=== PATIENT | female | born 1985 | race Caucasian/White ===

== ENCOUNTER 2023-02-14 16:18 | Outpatient (RCR) | payer BC, SELFPAY ==
[2023-01-15 17:14] VITALS: BP 112/79; PULSE 83
[2023-01-24 16:32] VITALS: BP 119/76; PULSE 82
[2023-01-31 16:10] VITALS: BP 132/82; PULSE 85
[2023-02-07 16:27] VITALS: BP 124/76; PULSE 87
--- NOTE | ~2023-02-14 | US_ITS ---
EXAMINATION: US OB BPP wo non-stress DATE: 02/14/2023 19:06 INDICATION: GDM. Variable decelerations. TECHNIQUE: Real-time ultrasound of the pelvis was performed. COMPARISON: None. FINDINGS: There is a single living fetus in vertex presentation, longitudinal lie. The placenta is posterior a nd remote from the internal os. heart rate is 144 bpm. The amniotic fluid index is 13.4 cm, whi ch is normal (5th to 95th percentile is 7.5 to 24.4 cm). Biophysical profile performed by the technologist: breathing (30 sec sustained breathing in 30 minutes): 2 out of 2. movement (3 gross body movements in 30 minutes: 2 out of 2. tone (one episode of qrctvgm-wqksoymkh-rtsnmfl limb movement): 2 out of 2. Amniotic fluid pocket (2 cm): 2 out of 2. Total score: 8 out of 8. IMPRESSION: Single living fetus in vertex presentation. Biophysical profile 8 out of 8. Normal JUAN. Reviewed, dictated and finalized at location K.
[2023-02-14 19:58] VITALS: BP 133/85; PULSE 96
== END 2023-04-15 23:59 | disposition home or self-care (01) ==
LOC: ANHOBOP 16:18
PROVIDERS: Visit Provider Obstetrics & Gynecology
DX: O24.419 Gestational diabetes mellitus in pregnancy, unspecified control (principal); Z3A.33 33 weeks gestation of pregnancy; Z3A.34 34 weeks gestation of pregnancy; Z3A.35 35 weeks gestation of pregnancy; Z3A.36 36 weeks gestation of pregnancy; Z3A.37 37 weeks gestation of pregnancy
CPT/HCPCS: 59025; 76819

== ENCOUNTER 2023-02-19 06:59 | Inpatient (IN) | payer BC, SELFPAY ==
[2023-02-19] VITALS (17 sets, daily range): BP systolic 126–153; BP diastolic 58–103; PULSE 72–92; RESP 18–22; TEMP 36.6–37.2; O2SAT 97–98; BMI 39.7
--- NOTE | 2023-02-19 07:25 | LDADM ---
This patient, Mandy Segundo, was admitted to Labor/Delivery/Recovery 106 on 02/19/23 at 06:59. Plans for labor, pain management and were discussed with patient. Patient/family oriented to hospital policies and general routines including ID bracelet, bed and alarms, visiting hours, pain management, procedures, bathroom and other care routines, personal items, smoking policy, room service/diet and guest tray routines, security routines, and visiting hours. Patient/Family are encouraged to report perceived risks to care and to ask questions if they do not understand what they are told or what they should do. See OBIX for further documentation.
[2023-02-19] MEDS: LACTATED RINGERS 1,000 ML 125 ML IV CONT (07:28)
[2023-02-19 07:39] LABS: Basophils Absolute Auto 0.1 K/mm3 (0.0-0.1); Basophils Percent Auto 0.4 % (0.2-1.2); Eosinophils Absolute Auto 0.1 K/mm3 (0-0.3); Eosinophils Percent Auto 0.5 % (0-4.4); Hematocrit 43.1 % (37.0-47.0); Hemoglobin 14.8 g/dL (12.0-15.0); Immature Granulocyte Absolute 0.05 K/mm3 (0.00-0.031); Immature Granulocyte Percent A 0.4 % (0-0.5); Lymphocytes Absolute Auto 3.54 K/mm3 (0.9-3.2); Lymphocytes Percent Auto 26.8 % (18.3-44.2); Mean Corpuscular HGB Conc 34.3 g/dl (32-36); Mean Corpuscular Hemoglobin 32.2 pg (26-34); Mean Corpuscular Volume 93.7 fl (80-100); Mean Platelet Volume 11.9 fl (7.4-10.4); Monocytes Absolute Auto 0.6 K/mm3 (0.1-0.6); Monocytes Percent Auto 4.6 % (2.6-8.5); Neutrophils Absolute Auto 8.9 K/mm3 (1.3-6.7); Neutrophils Percent Auto 67.3 % (45.5-73.1); Platelet Count Result 235 k/mm3 (150-375); Red Cell Distribution Width 13.2 % (11.5-14.5); White Blood Count 13.2 K/mm3 (4.5-10.0)
[2023-02-19 07:40] LABS: Glucose Point of Care 126 mg/dl (65-105)
[2023-02-19] MEDS: OXYTOCIN 30 UNITS/NS 500 ML 30 UNITS/500 ML BAG 999 UNITS IV CONT (07:48)
--- NOTE | 2023-02-19 07:52 | P.HP_ITS ---
H&P: HPI History of Present Illness Date/Time: 02/19/23 07:52 Chief Complaint: labor Narrative: since 37-year-old 2 para 1 at term who is admitted in active fast labor. has been complicated by gestational diabetes on glyburide. Snap blood sugar was 120 this morning and she has been controlled delivery is imminent. [facility] Family History Family History Other Patient denies significant medical history Social History Social History Substance use: never Spiritual care concerns: No Meds Home Medications and Allergies Home Medications Medication Instructions Recorded Confirmed Type cholecalciferol (vitamin D3) 25 25 mcg PO DAILY 01/31/23 01/31/23 History mcg (1,000 unit) tablet esomeprazole magnesium 40 mg 40 mg PO DAILY PRN Acid Reflux 01/31/23 01/31/23 History capsule,delayed release (Nexium) glyburide 2.5 mg tablet 2.5 mg PO DAILY 01/31/23 01/31/23 History glyburide 5 mg tablet 5 mg PO DAILY 01/31/23 01/31/23 History prenat.vits,xavier,lha-ldhm-uzhgf 1 tablet 01/31/23 History Allergies Allergy/AdvReac Type Severity Reaction Status Date / Time No Known Allergies Allergy Verified 01/31/23 15:33 Exam Const: General: cooperative, healthy appearing and overweight Orientation/consciousness: oriented to person, oriented to place and oriented to time HENMT: Head: normal to inspection Resp: Effort & Inspection: normal respiratory effort Cardio: Rate: regular rate Rhythm: regular rhythm Heart sounds: S1 normal heart sound present and S2 normal heart sound present GI: Inspection: normal to inspection ( Gravid soft instruments) : Speculum Exam - Vagina: normal appearance of the vagina Speculum Exam - Cervix: normal appearance of the cervix ( cervix with anterior lip. FHTs reassuring) H&P: Results Labs Labs: Short CBC 02/19/23 Range/Units 07:33 WBC 13.2 H (4.5-10.0) K/mm3 Hgb 14.8 (12.0-15.0) g/dL Hct 43.1 (37.0-47.0) % Plt Count 235 (150-375) k/mm3 Assessment and Plan Assessment and plan (1) Term : Code(s): Z34.90 - Encounter for supervision of normal , unspecified, unspecified trimester Status: Acute (2) Gestational diabetes: Code(s): O24.419 - Gestational diabetes mellitus in , unspecified control Status: Acute Plan spontaneous vaginal delivery is imminent
--- NOTE | 2023-02-19 07:55 | P.PCNOB_ITS ---
OB - Delivery Note Procedure Delivery date: 02/19/23 Events: Gestational Diabetes Induction method: None Delivery monitor: External FHT Route of delivery: Episiotomy description: None Laceration Description: None Quantitative Blood Loss (ml): 60 Anesthesia type: None [place] Baby Date of : 02/19/23 Time of : 07:44 Weeks of gestation at delivery: 38 Infant gender: Male presentation: vertex position: Right Occiput Anterior Placenta delivery description: Spontaneous Cord Vessel Description: 3 Vessels, Nuchal Cord and Loose score one minute: 6 score five minutes: 8
[2023-02-19] MEDS: OXYTOCIN 30 UNITS/NS 500 ML 30 UNITS/500 ML BAG 125 UNITS IV CONT (08:20)
[2023-02-19] MEDS: IBUPROFEN 600 MG TABLET PO ×2 (09:01→17:39)
[2023-02-19] MEDS: BENZOCAINE 20% AER SPR (*SP) 56 GM CAN 1 SPRAY TOPICAL (09:02)
[2023-02-19] MEDS: WITCH HAZEL 40 PADS 1 PAD TOPICAL (09:02)
[2023-02-19 10:34] LABS: Alanine Aminotransferase 23 U/L (6-35); Albumin Level 3.4 g/dL (3.5-5.1); Alkaline Phosphatase 154 U/L (38-126); Anion Gap 8 mmol/L (8-16); Aspartate Amino Transferase 27 U/L (14-36); Bilirubin,Total 0.3 mg/dL (0.2-1.3); Blood Urea Nitrogen 10 mg/dL (7-17); Calcium 8.7 mg/dL (8.4-10.2); Carbon Dioxide 17 mmol/L (22-30); Chloride 109 mmol/L (98-107); Estimated CRCL calculation 183 ml/min; Estimated Glomerular Filt Rate > 60; Glucose 167 mg/dL (65-110); Potassium 4.2 mmol/L (3.4-5.0); Sodium 134 mmol/L (137-145); Uric Acid 5.2 mg/dL (2.5-7.5)
[2023-02-19] MEDS: MULTIVIT/MIN/PREN/FOL AC/IRON TABLET 1 TAB PO (10:55)
[2023-02-19] MEDS: ACETAMINOPHEN 325 MG TABLET 650 MG PO ×2 (10:55→20:40)
[2023-02-19 11:02] LABS: Glucose Point of Care 187 mg/dl (65-105)
--- NOTE | 2023-02-19 12:23 | PM.OBDSVD ---
DS: Admitting Diagnosis Discharge Date 02/21/23 Admitting Diagnosis IUP at 38 weeks Labor A2DM DS: Discharge Diagnosis Discharge Diagnosis (1) (normal spontaneous vaginal delivery): Code(s): O80 - Encounter for full-term uncomplicated delivery Status: Acute (2) Gestational diabetes: Qualifiers: Gestational diabetes mellitus control: diet-controlled Trimester: third trimester Qualified Code(s): O24.410 - Gestational diabetes mellitus in , diet controlled Code(s): O24.419 - Gestational diabetes mellitus in , unspecified control Status: Acute OB - DS: Summary OB Procedures : None OB Procedures Intrapartum: Spontaneous Vag Delivery OB Procedures: : None Time Spent with Patient Time attestation: Total time spent providing and/or coordinating discharge services: DS: Data Data Completed and Pending Pending studies at discharge: Pending at discharge 02/19/23 07:48 Surgical [PTH] Routine Labs on day of discharge: Labs from last 24 hours 02/19/23 02/19/23 02/19/23 10:58 09:55 07:33 WBC 13.2 H RBC 4.60 Hgb 14.8 Hct 43.1 MCV 93.7 MCH 32.2 MCHC 34.3 RDW 13.2 Plt Count 235 MPV 11.9 H Immature Gran % (Auto) 0.4 Neut % (Auto) 67.3 Lymph % (Auto) 26.8 Mcmullen % (Auto) 4.6 Eos % (Auto) 0.5 Baso % (Auto) 0.4 Lymph # (Auto) 3.54 H Mcmullen # (Auto) 0.6 Eos # (Auto) 0.1 Baso # (Auto) 0.1 Abs Immat Gran (auto) 0.05 H Absolute Neuts (auto) 8.9 H Absolute Nucleated RBC 0.0 Nucleated RBC % 0.0 Sodium 134 L Potassium 4.2 Chloride 109 H Carbon Dioxide 17 L Anion Gap 8 BUN 10 Creatinine 0.50 L Estim Creat Clear Calc 183 Estimated GFR > 60 Glucose 167 H POC Capillary Glucose 187 H Uric Acid 5.2 Calcium 8.7 Total Bilirubin 0.3 AST 27 ALT 23 Alkaline Phosphatase 154 H Total Protein 7.0 Albumin 3.4 L RPR Pending Blood Type O Positive Antibody Screen Negative 02/19/23 07:32 WBC RBC Hgb Hct MCV MCH MCHC RDW Plt Count MPV Immature Gran % (Auto) Neut % (Auto) Lymph % (Auto) Mcmullen % (Auto) Eos % (Auto) Baso % (Auto) Lymph # (Auto) Mcmullen # (Auto) Eos # (Auto) Baso # (Auto) Abs Immat Gran (auto) Absolute Neuts (auto) Absolute Nucleated RBC Nucleated RBC % Sodium Potassium Chloride Carbon Dioxide Anion Gap BUN Creatinine Estim Creat Clear Calc Estimated GFR Glucose POC Capillary Glucose 126 H Uric Acid Calcium Total Bilirubin AST ALT Alkaline Phosphatase Total Protein Albumin RPR Blood Type Antibody Screen Discharge Plan Discharge Attending physician on discharge: Dexter Belle Discharging Clinician: Dexter Belle Patient Disposition: Home, Self-Care Activity: pelvic rest Diet: regular Discharge Instructions: Education: Mom and Baby Guide Given to: Mother Follow-Up: Call your delivering provider's office for an appointment to be seen in: 6 Weeks Mom and baby [facility] the follow-up appointment. Appointment Date/Time: February 22, 2023 at 10:00 am What to expect at your follow-up visit: Blood Pressure Check Call [phone] if you are unable to keep your appointment time. BREAST CARE: * Wear a snug supportive bra. * For engorgement discomfort: Breast Feeding: * Apply warm moist washcloths * Express milk as needed to relieve engorgement * Wear loose clothing Bottle Feeding: * May apply ice packs * For sore nipples: * Identify correct latch-on * Apply warm moist washcloths before and after nursing * Air dry nipples after nursing * May apply Lansinoh cream to nipples PERINEAL CARE: * Until bleeding stops, use your zaynab bottle after urinating * Change y
[2023-02-19 13:54] LABS: Rapid Plasma Reagin Non-Reactive (NonReactive)
[2023-02-19 15:44] LABS: Glucose Point of Care 175 mg/dl (65-105)
--- NOTE | 2023-02-19 17:28 | PC.NURSE ---
[id number] Introductions were made, then consulted with patient to assess needs related to . Mother led the conversation with her?plans to feed?her infant and the?experience so far. Mother works well with her with encouragement and education. Encouraged understanding of the benefits of skin to skin (demonstrating unwrapping and placing upright on her chest), stimulating with massage touch, changing positions to encourage wakefulness, how to watch for early feeding cues, responsive feeding, feeding on demand (aiming for 8-12 times in 24 hours, about every 2-3 hours), milk production, building/maintaining a milk supply, duration of feeding, signs of adequate intake/output and how to record on the feeding sheet. needs a blood sugar before due to LGA. First result 42 mg/dl, RN rejected to attempt for a 45 and it resulted at 34mg/dl. While waiting for Primary RN to order the gel RN assisted mother with hand expressing milk and finger fed to the infant, then quickly latched effectively to the right breast after reviewing positioning and ear, shoulder, hip alignment, supporting the breast to facilitate a deep latch, asymmetrical latch (off-center), leading with the chin with a big, open, wide gape and body close to mother. Education given to mother of how to visualize suck/swallow ratios and listen for drinking at the breast. Infant was able to maintain latch without discomfort to mother. Nipple care reviewed with optimal latch and good positioning. Gel was provided by the Primary RN and it was administered by RN, then infant was latched to the left breast using football positioning. [id number] Martínez. We will check blood sugar aiming for 30 minutes after the gel and the . Repeat blood sugar is 39mg/dl and the hold on the 15mls of formula was now fed to the along with gel per guidelines. Resources used to facilitate learning were used with the tool, mom and baby guide. Mother voiced understanding of skin to skin, stimulating with massage touch, responsive feedings, hand expressed colostrum, talking to to encourage if it has been 2 -2.5 hours since the start of the last , to call if infant does not latch, or if there is discomfort with . Reviewed protecting the milk supply, paced bottle feeding and asking questions for clarification. Resources provided for inpatient/outpatient with feeding sheet name written on the communication board and the mom/baby guide. Parents voiced understanding of information, demonstrated learning and will call if there is a request for assistance. Reported to the Nursery RN Lana and Primary RN Peri. Lana will be rechecking the blood sugar 30 after the last formula feeding and gel. RN attempted a call to Dr. Martínez and she will call back for an update as she is occupied urgently in the ED. Nursery RN reported the blood sugar resulted at 67mg/dl.
[2023-02-19] MEDS: DOCUSATE SODIUM 100 MG CAPSULE PO (17:40)
--- NOTE | 2023-02-19 19:26 | OBPPTRN ---
1129 Patient transferred to post room #280 via W/C. Support person present. Oriented to unit, room, information board, rooming in, admission packet and security measures. Patient verbalizes understanding.
[2023-02-19 20:26] LABS: Glucose Point of Care 164 mg/dl (65-105)
[2023-02-19] MEDS: LANOLIN (LANSINOH) 7.5 GM CREAM 1 APPLIC TOPICAL (20:40)
[2023-02-20] MEDS: IBUPROFEN 600 MG TABLET PO ×2 (05:21→16:44)
[2023-02-20 05:42] LABS: Glucose Point of Care 138 mg/dl (65-105)
[2023-02-20 05:49] LABS: Hematocrit 38.7 % (37.0-47.0); Hemoglobin 12.8 g/dL (12.0-15.0)
[2023-02-20 08:15] VITALS: BP 104/57; PULSE 67; RESP 18; TEMP 37.3; O2SAT 98
[2023-02-20] MEDS: ACETAMINOPHEN 325 MG TABLET 650 MG PO (09:09)
[2023-02-20] MEDS: DOCUSATE SODIUM 100 MG CAPSULE PO ×2 (09:09→16:45)
[2023-02-20] MEDS: MULTIVIT/MIN/PREN/FOL AC/IRON TABLET 1 TAB PO (09:09)
[2023-02-20 10:22] LABS: Glucose Point of Care 178 mg/dl (65-105)
--- NOTE | 2023-02-20 15:41 | PC.NURSE ---
[id number] Consulted with patient to assess needs related to after it was reported that had not fed for the last 4 hours. Infant is demonstrating late feeding cues. Reviewed with mother how to organize and settle her infant who has been bottle and breastfed. After infant was settled at the breast we reviewed supporting breast, protecting the nipples with an optimal deep latch and good positioning. latched optimally to the left breast in football position. Education given to mother of how to visualize suck/swallow ratios and listen for drinking at the breast. was able to maintain latch without discomfort to mother. Encouraged understanding the benefits of skin to skin, responding to feeding cues, frequencies of feeding 8-12 times in 24 hours on demand often encouraging to practice with early feeding cues, duration of feedings, protecting the milk supply with pumping when bottle feeding and encouraging swallowing at the breast. had bottles last night, pump was brought to mother during the material handler 1st shift but mother did not pump. Reviewed positioning and alignment, supporting breast, off-centered (asymmetrical latch) and leading with the chin with big, open, wide gape. Nipple care reviewed with optimal latch, good positioning and using clean hands when feeding her infant and touching her breast. Infant self detached after an effective with no pain or misshaped nipple to mother. Infant placed [id number] and appears content with relaxed hands. Resources used to facilitate learning were used from the tool, mom and baby guide. Mother voiced understanding of the education shared, to call for assistance if the infant does not latch or if there is discomfort with . Reported to the primary RN.
[2023-02-20 20:00] VITALS: BP 150/80; PULSE 73; RESP 18; TEMP 36.9; O2SAT 98
--- NOTE | 2023-02-21 07:00 | PC.NURSE ---
PT introductions made and plan of care discussed per post , pain management, breast feeding, daily care activities and pending discharge to home. PT sole recipient of such instructions and no barriers to learning identified at this time. PT received such instructions per one to one discussion, mom baby care guide and demonstrations this shift. PT verbalized understanding of such care.
[2023-02-21 07:25] VITALS: BP 126/72; PULSE 72; RESP 18; TEMP 37; O2SAT 98
[2023-02-21] MEDS: MULTIVIT/MIN/PREN/FOL AC/IRON TABLET 1 TAB PO (09:58)
[2023-02-21 09:59] VITALS: PULSE 72; RESP 18; O2SAT 98
[2023-02-21] MEDS: DOCUSATE SODIUM 100 MG CAPSULE PO ×2 (09:59→16:12)
[2023-02-21] MEDS: IBUPROFEN 600 MG TABLET PO ×3 (09:59→16:13)
[2023-02-21] MEDS: ACETAMINOPHEN 325 MG TABLET 650 MG PO ×2 (09:59→16:11)
[2023-02-21] MEDS: LANOLIN (LANSINOH) 7.5 GM CREAM 1 APPLIC TOPICAL (10:00)
--- NOTE | 2023-02-21 12:19 | PM.OBPNVD ---
OB - PN: Subj Subjective Date/time seen: 02/20/23 1700 Narrative: Pain OK. Would like circumcision for son. OB - PN: Obj Data Labs 02/20/23 05:30 02/19/23 09:55 OB - PN A/P Plan Comments: A: PPD#1, doing well. P: Routine care. Reviewed circ. Exam Psych: Other: AVSS ABD soft, nontender, fundus firm EXT nontender
--- NOTE | 2023-02-21 12:21 | PM.OBPNVD ---
OB - PN: Subj Subjective Date/time seen: 02/21/23 12:21 Narrative: Pain OK. Would like to go home. OB - PN: Obj Data Labs 02/20/23 05:30 02/19/23 09:55 OB - PN A/P Plan Comments: A: PPD#2, doing well. P: Home to f/u 6 weeks. Exam Psych: Other: AVSS ABD soft, nontender, fundus firm EXT nontender
--- NOTE | 2023-02-21 13:09 | PC.NURSE ---
[id number] Mother led the conversation with her experience and plan to feed her so far and her ability to feed her infant with and supplementing with formula until her full milk volume is in. Reminded mother to use good handwashing technique to prevent infection. Mother is feeding appropriately for growth of and understands stimulating infant to eat if needed. Infant has had appropriate feedings in the last 24 hours meets the outcomes for weight, output and jaundice at this time. We discussed the 9 breast feedings in the last 24 hours and protecting her milk supply. Mother states she is confident to continue /pumping/supplementing her at home and feels a fullness that is new in her breast. Reinforced understanding of milk production, transition of milk, signs of adequate intake, transition of stool, prevention/relief of engorgement, responsive watching for feeding cues, feeding on demand, the different methods of stimulating infant to breastfeed 2-3 hours after the start of the last feeding, community resources and when to call a provider using the resource of the mom and baby guide. Mother voiced understanding of the education shared.
--- NOTE | 2023-02-21 16:15 | PC.NURSE ---
Pt received discharge instructions per protocol and verbalized understanding of such care.
--- NOTE | 2023-02-21 16:15 | PC.NURSE ---
Patient was given the opportunity to view the discharge video Mother & Baby Care, The First Two Weeks and to ask questions. Patient declined viewing the video and has been given the mother/baby guide for home reference.
--- NOTE | 2023-02-21 16:22 | PC.NURSE ---
Addendum entered by Barbra Graf RN 02/21/23 16:28: Infant effectively breastfed on the left breast using football positioning maintaining latch and suck/swallow appropriately 3:1 and 2:1 ratios at times. Mother stated earlier today she was feeling a fullness to her breast that was new. We reviewed prevention/treatment of engorgement, mastitis and plugged ducts. Original Note: [id number] Purposefully rounded to assess needs. Mother is attempting to wake her infant and states is not wanting to latch to the breast. Infant was placed [id number] and calmed for a bit, feeding cues visualized, then infant was positioned using football hold. Infant was moving head back and forth with the nipple in the mouth a bit frantic. We attempted a few times and was not settling down to latch to the breast. was bottle fed 3 mls of formula with ease, then mother was able to hand express colostrum, infant sucked and settled down to effectively breastfeed. Mother was encouraged to practice her often and we reviewed protecting the milk supply. Mother voiced understanding of information, to call for assistance if doesn't latch, there's pain with latching or she has questions or concerns.
--- NOTE | 2023-02-21 17:30 | PC.NURSE ---
PT discharged to home ambulatory accompanied by spouse and and taken to waiting car. follow up appts confirmed
[2023-02-22 10:32] VITALS: BP 129/64; PULSE 66; RESP 18; TEMP 37.3; O2SAT 99
== END 2023-02-21 17:30 | disposition home or self-care (01) | DRG 807 ==
LOC: ANHLDR 07:27 → ANHOB2 11:56
PROVIDERS: Obstetrics & Gynecology; Admitting Provider Obstetrics & Gynecology; Visit Provider Obstetrics & Gynecology
DX: O24.425 Gestational diabetes mellitus in childbirth, controlled by oral hypoglycemic drugs (principal); O69.81X0 Labor and delivery complicated by cord around neck, without compression, not applicable or unspecified; Z37.0 Single live birth; Z3A.38 38 weeks gestation of pregnancy
CPT/HCPCS: 36415; 80053; 82948; 84550; 85014; 85018; 85025; 86592; 86850; 86900; 86901; 88307; A9270; J2590; J2795; J7120